=== PATIENT | female | born 1985 | race Caucasian/White ===

== ENCOUNTER 2020-07-22 12:05 | Inpatient (IN) | payer OTHER ==
[2020-07-22 12:49] LABS: Absolute Lymphocytes (CBC) 1.8 K/uL (0.7-4.9); Basophils % 0.2 % (0-1.3); Lymphocytes % 14.6 % (15.3-44.8); MPV 8.1 fL (7.6-11.3); RBC Red Blood Cell Count 4.09 M/uL (3.86-4.86)
[2020-07-22 12:52] LABS: Urine Appearance CLOUDY; Urine Bilirubin NEGATIVE (NEG); Urine Blood NEGATIVE (NEG); Urine Color DK YELLOW; Urine Glucose NEGATIVE (NEG); Urine Microscopic Reflex ORDER UMIC; Urine Protein TRACE (NEG); Urine Specific Gravity 1.025 (1.005-1.030); Urine Urobilinogen 0.2 mg/dL (0.2-1.0)
[2020-07-22 12:55] LABS: Protime INR 1.01
[2020-07-22 13:07] LABS: ALT/SGPT 13 U/L (12-78); AST/SGOT 12 U/L (15-37); Albumin 2.7 g/dL (3.4-5.0); Alkaline Phosphatase 175 U/L (45-117); BUN Blood Urea Nitrogen 8 mg/dL (7-18); Bicarbonate 22 mmol/L (21-32); Bilirubin Direct 0.1 mg/dL (0-0.2); Bilirubin Total 0.4 mg/dL (0.2-1.0); Glucose Level 92 mg/dL (74-106); Potassium 3.9 mmol/L (3.5-5.1); Protein, Total 7.1 g/dL (6.4-8.2); Sodium Level 138 mmol/L (136-145); Uric Acid 3.3 mg/dL (2.6-6.0)
[2020-07-22] MEDS ORDERED: Ringers Lactate 1,000 ML IV PRN (13:16)
[2020-07-22 13:23] LABS: Urine Protein/Creatinine Ratio 0.16 ratio (<0.15)
[2020-07-22 13:24] LABS: Urine Amorphous Sediment 1+ /HPF (NONE SEEN); Urine Bacteria >50 /HPF (<20); Urine Culture Reflex Order REFLEXED; Urine Mucus 1+ /HPF (NONE SEEN); Urine RBC NONE SEEN /HPF (NONE SEEN)
--- NOTE | 2020-07-22 13:25 | P.OBGYNHP ---
Certification for Inpatient Patient admitted to: Inpatient With expected LOS: >2 Midnights Patient will require the following post-hospital care: None Practitioner: I am a practitioner with admitting privileges, knowledge of patient current condition, hospital course, and medical plan of care. Services: Services provided to patient in accordance with Admission requirements found in Title 42 Section 412.3 of the Code of Federal Regulations Patient History Date of Service: 07/22/20 Primary Care Provider: Gema Reason for admission: Spontaneous rupture of membranes (SROM) History of Present Illness: 34 year old @38W3D presents to triage for scheduled PIH workup. During interview patient admitted to [facility] at around 2 am with continous leakage throughout day. Denies VB. +FM. Pt denies MUSE or visual changes. Allergies No Known Allergies Allergy (Verified 07/19/20 10:20) Home medications list reviewed: Yes (PNV) - Past Medical/Surgical History Diabetic: No Past Medical History: Patient denies medical history (Denies HTN) Past Surgical History: Patient denies surgical history Psychosocial/ Personal History: Denies ETOH/Tobacco and Illicits - Social History Smoking Status: Never smoker Alcohol use: No CD- Drugs: No Caffeine use: Yes Place of Residence: Home Review of Systems General: Unremarkable Eyes: Unremarkable ENT: Unremarkable Respiratory: Unremarkable Cardiovascular: Unremarkable Gastrointestinal: Abdominal Pain (occasional contractions) Genitourinary: Frequency Musculoskeletal: Other (hip pains) Integumentary: Unremarkable Neurological: Unremarkable Lymphatics: Unremarkable Physical Examination - Vital Signs Temperature: 97.9 F Blood Pressure: 113/72 Pulse: 98 Respirations: 18 - General General: Alert and in no apparent distress HEENT: Atraumatic, Normocephalic Neck: Supple Respiratory: Clear to auscultation bilaterally Cardiovascular: Regular rate/rhythm Gastrointestinal: Soft and benign Musculoskeletal: No clubbing, Swelling (trace bilateral) Integumentary: No rashes, No breakdown Neurological: Normal gait, Normal speech - Female Pelvic External genitalia: Normal Vagina: Normal, Discharge (clear fluid. + nitrizine c/w rupture) Cervix: Dilation (1), Effacement (25), station (-3) Uterus: Non-tender, Soft, Gravid Adnexa: Unable to evaluate - Obstetrics heart rate tracing: Category 1 Contractions: Frequency (q3-5minutes) Amniotic membrane: SROM (+Nitrizine, + pooling) Laboratory Data (last 24 hrs) 07/22/20 12:27: Sodium 138, Potassium 3.9, BUN 8, Creatinine 0.69, Glucose 92, Uric Acid 3.3, Total Bilirubin 0.4, AST 12 L, ALT 13, Alkaline Phosphatase 175 H 07/22/20 12:27: PT 11.9, INR 1.01, APTT 24.6 07/22/20 12:27: WBC 12.4 H, Hgb 12.5, Hct 36.0, Plt Count 258 Assessment and Plan - Plan 34 year old @38w3d with SROM Admit Normal Bps and labs Plan Pitocin for IOL-SROM GBS negative Discharge Plan: Home - Advance Directives Does patient have a Living Will: No Does patient have a Durable POA for Healthcare: No - Code Status/Comfort Care Code Status: Full Code Physician Review: Patient Assessed, Agree with Above Assessment and Plan Time Spent Managing Pts Care (In Minutes): 60
[2020-07-22 13:36] VITALS: BMI 42.7
[2020-07-22] MEDS ORDERED: Ringers Lactate 1,000 ML IV SCH (14:00)
[2020-07-22] MEDS ORDERED: OXYTOCIN/LR 20 UNIT/1,000 ML BAG IV SCH (14:00)
--- NOTE | 2020-07-22 18:14 | P.PN ---
Date of Service: 07/22/20 Patient describes some mild cramps with contractions but currently declines pain meds. VSS AF FHR: cat 1 toco: q2-3min SVE: /-3 Forebag noted AROM with more blood tinged fluid noted A/P: 34 y/o @38w3d with SROM Will continue to increase Pitocin to get adequate pattern Reassuring status MCS
[2020-07-22] MEDS ORDERED: FENTANYL CITR 100 MCG/2 ML IV ONE (18:56)
[2020-07-22] MEDS ORDERED: ROPIVACAINE HCL 100 ML IV PRN (18:56)
[2020-07-22] MEDS ORDERED: ROPIVACAINE HCL 0.2% 20ML AMP IV ONE (18:58)
--- NOTE | 2020-07-22 20:00 | P.PN ---
Patient complaining of painful contractions desires epidural VSS AF FHR: difficult to monitor toco: q2-4min SVE: /-3 ISE placed with ease. A/P: SROM IOL with pitocin Epidural now FHR reassuring with ISE on MCS
--- NOTE | 2020-07-22 22:09 | P.PN ---
Pt comfortable with epidural FHR cat 1 toco: q2-3min SVE: 3/-3 IUPC placed. A/P: SROM with Pitocin No cervical change. IUPC placed to be sure can get adequate MVUs status reassuring. d/w pt inidcations for PLTCS. Pt with verbal understanding. MCS
[2020-07-22 23:39] LABS: RPR (Rapid Plasma Reagin) NON-REACT (NON-REACT)
[2020-07-22] MEDS ORDERED: METHYLERGONOVINE 0.2MG/ML AMP IM ONE (23:55)
[2020-07-22] MEDS ORDERED: LIDOCAINE 1% 20 ML MDV ONE (23:56)
[2020-07-23] MEDS ORDERED: NA CIT/CITRIC AC 30 ML ORAL UDC ONE (01:03)
[2020-07-23] MEDS ORDERED: CEFAZOLIN/SWI 2gm 2 GM/20 ML SYR ONE (01:03)
[2020-07-23] MEDS ORDERED: propofoL 200 MG/20 ML VIAL IV ONE (01:31)
[2020-07-23] MEDS ORDERED: METHYLERGONOVINE 0.2MG/ML AMP IM ONE (01:35)
[2020-07-23] MEDS ORDERED: OXYTOCIN 10 UNIT/ML ML IV ONE (01:37)
[2020-07-23] MEDS ORDERED: FENTANYL CITR 250 MCG/5 ML ONE (01:40)
[2020-07-23] MEDS ORDERED: ROCURONIUM 50 MG/5 ML VIAL IV ONE (01:51)
--- NOTE | 2020-07-23 01:57 | P.OP ---
Preoperative diagnosis: Emergency Section Postoperative diagnosis: Emergency Section Primary procedure: Co-Surgeon Emergency Section Anesthesia: General Estimated blood loss: See OB/ Staff Interpreter Note Specimen: Cord Blood Findings: Healthy Male Complications: None Transferred to: Recovery Room Condition: Good
[2020-07-23] MEDS ORDERED: DOCUSATE NA/SENNA CONC 1 TAB PO PRN (02:17)
[2020-07-23] MEDS ORDERED: MORPHINE SULFATE/PF 1 MG/ML (10 ML AMP) ONE (02:17)
[2020-07-23] MEDS ORDERED: ACETAMINOPHEN 500 MG TAB PO PRN (02:17)
[2020-07-23] MEDS ORDERED: ONDANSETRON 4 MG/2 ML VIAL IV PRN (02:17)
[2020-07-23] MEDS ORDERED: PRENATAL VITAMIN PO SCH (02:30)
--- NOTE | 2020-07-23 02:35 | P.OP ---
Bottle Dealer: Carlee Preoperative diagnosis: @38w3d heart rate abnormalites Postoperative diagnosis: same Primary procedure: Primary Low transverse Csection Anesthesia: General Estimated blood loss: 650 Specimen: placenta, cord blood Findings: Healthy Male Operative Technique: Patient was prepped and drapped in a sterile fashion. Schafer was in place. Pfannenstiel inicison made with scapel. INcision carried down to fascia with sharp and blunt dissection. Rectal fascia entered sharply and entered. Muscles in the midline. Perineum was entered bluntly. Bladder flap created. Bladder bladder inserted. Lower uterine segment incision made with scapel. Infant was delivery through incision. Tight nuchal cord noted. Nuchal cord reduced. Shoulders and body delivered with ease. Mouth suctioned. Baby passed off to awaiting pediatrican. COrd blood drawn. Placenta removed. Uterus cleared of all clot and debri. Uterus exteriorized. Poor tone Methergine ordered and given. Closed with 0 vicryl x2 in a running locking fashion. Interrupted sutures used to embricate the incision. Abdomen was cleared of all clots and debri. Uterine reinsterted. hemostatis noted. Fascia closed with 0 vicryl. 2-0 plain gut to closed subcut. 4-0 used to close skin. Sponge,lap and needle counts correct. Complications: None Drain(s): Urinary catheter Fluids & blood products: 1000 Transferred to: Recovery Room Condition: Good
[2020-07-23] MEDS ORDERED: Ringers Lactate 1,000 ML IV ONE (08:00)
[2020-07-23] MEDS ORDERED: Ringers Lactate 1,000 ML IV SCH (09:00)
[2020-07-23] MEDS ORDERED: HYDROCODONE/APAP 5/325 MG TAB PO PRN (10:30)
[2020-07-24] MEDS: IBUPROFEN 400 MG TAB PO PRN ×2 (00:50→12:20)
[2020-07-24 04:48] LABS: Absolute Lymphocytes (CBC) 2.2 K/uL (0.7-4.9); Basophils % 0.2 % (0-1.3); Hematocrit 26.6 % (36.0-45.0); Lymphocytes % 18.2 % (15.3-44.8); MPV 8.1 fL (7.6-11.3)
[2020-07-24] MEDS ORDERED: PRENATAL VITAMIN PO ONE (05:57)
--- NOTE | 2020-07-24 07:46 | P.DS ---
Admission Date: 07/22/20 Discharge Date: 07/24/20 Primary Care Provider: Gema Disposition: ROUTINE DISCHARGE Discharge Condition: GOOD Reason for Admission: Spontaneous rupture of membranes (SROM) Consultations: anesethesia Procedures: Primary Low transverse Csection Brief History of Present Illness: 34 year old @38W3D presents to triage for scheduled PIH workup. During interview patient admitted to [facility] at around 2 am with continous leakage throughout day. Denies VB. +FM. Pt denies MUSE or visual changes. Hospital Course: Pt underwent IOL with Pitocin after SROM diagnosis. PT progressed to 10 cm but began having FHRA. Pt was unable to push fetus and with FHRA pt opted for a PLTCS. CS perforfmed. PP care uncomplicated. Vital Signs/Physical Exam: Temp Pulse Resp BP Pulse Ox 97.6 F 80 18 89/53 L 07/24/20 04:30 07/24/20 04:30 07/24/20 04:30 07/24/20 04:30 General: Alert, In no apparent distress HEENT: Atraumatic, Normocephalic Neck: Supple Respiratory: Clear to auscultation bilaterally Cardiovascular: Regular rate/rhythm Gastrointestinal: Soft and benign, No tenderness, No masses, No rebound Musculoskeletal: No erythema, No tenderness Integumentary: No rashes, No breakdown Neurological: Normal gait, Normal speech Lymphatics: No axilla or inguinal lymphadenopathy Laboratory Data at Discharge: WBC 12.3 K/uL (4.3-10.9) H 07/24/20 04:32 Hgb 9.1 g/dL (12.0-15.0) L D 07/24/20 04:32 Hct 26.6 % (36.0-45.0) L D 07/24/20 04:32 Plt Count 183 K/uL (152-406) D 07/24/20 04:32 PT 11.9 SECONDS (9.5-12.5) 07/22/20 12:27 INR 1.01 07/22/20 12:27 APTT 24.6 SECONDS (24.3-36.9) 07/22/20 12:27 Sodium 138 mmol/L (136-145) 07/22/20 12:27 Potassium 3.9 mmol/L (3.5-5.1) 07/22/20 12:27 BUN 8 mg/dL (7-18) 07/22/20 12:27 Creatinine 0.69 mg/dL (0.55-1.3) 07/22/20 12:27 Glucose 92 mg/dL (74-106) 07/22/20 12:27 Uric Acid 3.3 mg/dL (2.6-6.0) 07/22/20 12:27 Total Bilirubin 0.4 mg/dL (0.2-1.0) 07/22/20 12:27 AST 12 U/L (15-37) L 07/22/20 12:27 ALT 13 U/L (12-78) 07/22/20 12:27 Alkaline Phosphatase 175 U/L (45-117) H 07/22/20 12:27 Home Medications: Pnv No.95/Ferrous Fum/Folic AC [ Vitamins Tablet] 1 tab PO 1X 07/22/20 Docusate/Senna [Senokot-S*] 2 tab PO BEDTIME PRN PRN 30 Days #60 tab 07/24/20 Ferrous Sulfate [Feosol] 325 mg PO BID 30 Days #60 tablet 07/24/20 Hydrocodone 5/APAP 325 [[place] 5/325*] 2 tab PO Q4H PRN 5 Days #20 tab 07/24/20 New Medications: Ferrous Sulfate [Feosol] 325 mg PO BID 30 Days #60 tablet Hydrocodone 5/APAP 325 [[place] 5/325*] 2 tab PO Q4H PRN 5 Days #20 tab PRN Reason: Pain Scale 8-10 (Severe) Docusate/Senna [Senokot-S*] 2 tab PO BEDTIME PRN PRN 30 Days #60 tab PRN Reason: Constipation Patient Discharge Instructions: Pelvic rest for 6 weeks. Contact provider if redness or tenderness to incision. Temp >101 or any questions or concerns Diet: Regular Activity: No lifting more than 10 lbs Followup: Ioana Ribeiro MD [ACTIVE - CAN ADMIT] - Time spent managing pt's care (in minutes): 35
[2020-07-24 16:29] VITALS: BP 111/68; TEMP 98.5
--- NOTE | 2020-07-29 10:27 | OP ---
Date of Procedure: 07/23/2020 Surgeon: Shahbaz Hodges MD, Preoperative Diagnosis: Emergent section. Postoperative Diagnosis: Emergent section. Procedure: Primary low-transverse section. Anesthesia: General endotracheal. Estimated Blood Loss: 650 mL. Specimen: Placenta and cord blood. Findings: Healthy male/G1, P0, 38 week 3 day, heart rate abnormality causing emergency cesarea n section. Procedure In Detail: The patient was prepped and draped in the usual sterile fashion. A Schafer was i n place. Pfannenstiel incision made with scalpel. Incision carried down through fascia with sharp a nd blunt dissection. Rectus fascia entered sharply and entered. Muscles in the midline. The perineum was entered bluntly. Bladder flap created. Bladder retractor inserted. Lower uterine segment incision made with a scalpel. Infant was delivered through the incision. A tight nuchal cor d was noted. Nuchal cord was reduced. Shoulders and body delivered with ease. Mouth suctioned. Ba by passed off to the awaiting arts and crafts teacher. Cord blood drawn. Placenta removed. Uterus cleared of all clot and debris. Uterus exteriorized, poor tone was noted. Methergine ordered and given. Close d with a 0 Vicryl x2 in a running fashion. Interrupted sutures used to imbricate the incision. Abdo men was cleared of all clots and debris. Uterus reinserted. Hemostasis was noted and achieved. Fas cristi was closed with a 0 Vicryl in a running fashion. 2-0 plain gut was used to close the skin. Please see Dr. Phillip rainey for full details regarding her aspect of the operation. ZACK/MODL Voice ID: [id number] Report ID: [id number]
== END 2020-07-24 17:35 | disposition home or self-care (01) | DRG 788 ==
LOC: L&D 12:05 → SUATTDRO 12:05 → 2ND-WC 13:15
PROVIDERS: ADMIT Specialist; ATTEND Obstetrics & Gynecology
PROC: 10D00Z1 Extraction of Products of Conception, Low, Open Approach (ICD-10-PCS; principal; 2020-07-23)
PROC: 4A1H7CZ Monitoring of Products of Conception, Cardiac Rate, Via Natural or Artificial Opening (ICD-10-PCS; 2020-07-23)
PROC: 10H073Z Insertion of Monitoring Electrode into Products of Conception, Via Natural or Artificial Opening (ICD-10-PCS; 2020-07-23)
DX: O76 Abnormality in fetal heart rate and rhythm complicating labor and delivery (principal); Z3A.38 38 weeks gestation of pregnancy; Z37.0 Single live birth; Z01.812 Encounter for preprocedural laboratory examination; Z20.828 Contact with and (suspected) exposure to other viral communicable diseases
CPT/HCPCS: 36415; 80048; 80076; 81003; 81015; 82570; 84156; 84550; 85025; 85610; 85730; 86592; 86901; 87086; 87088; 88305; 88307; 99218; G0433; J0690; J2210; J2405; J2590; J2704; J2795; J3010; J7120; U0003